=== PATIENT | male | born 1960 | race African-American/Black ===

== ENCOUNTER 2016-10-26 14:47 | Emergency (ER) | payer OTHER ==
[2016-10-26] MEDS ORDERED: KETOROLAC 60 MG/2 ML VIAL IM STA (15:15)
--- NOTE | 2016-10-26 15:22 | ED ---
General Adult HPI - General Chief complaint: Extremity Problem,Nontraumatic Stated complaint: left knee pain Time Seen by Provider: 10/26/16 15:01 Source: patient, RN notes reviewed Mode of arrival: ambulatory Limitations: no limitations - History of Present Illness Initial comments: Chief complaint history of present illness this is a 55-year-old male who was at [facility] for heroin rehabilitation. He's been there approximately 10 days. He states while there he may have twisted his left knee. Left knee is painful and swollen. 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 Denies fever. Requesting a pain shot is not narcotic. He'll receive Toradol 60 IM. He has no ALLERGIES to Toradol, Motrin or asthma or aspirin problems. - Related Data Home Medications Medication Instructions Recorded Confirmed Acetaminophen Tab [Tylenol Tab] 650 mg PO Q4H PRN 10/26/16 10/26/16 Calcium 1000mg Magnesium 500mg 1 tab PO TID PRN 10/26/16 10/26/16 Chlorpheniramine Maleate 4 mg PO Q4H PRN 10/26/16 10/26/16 [Chlor-Trimeton] Hyoscyamine Sulfate [Levsin] 0.125 mg PO QID PRN 10/26/16 10/26/16 Ibuprofen [Motrin] 600 mg PO Q6H PRN 10/26/16 10/26/16 Insulin NPH Hum/Reg Insulin Hm 12 unit SQ DAILY 10/26/16 10/26/16 [humuLIN 70/30 Kwikpen] Insulin Regular, Human [NovoLIN R] See Protocol SQ ACHS PRN 10/26/16 10/26/16 Loperamide [Imodium] 2 mg PO QID PRN 10/26/16 10/26/16 Multivitamins, Thera [Multivitamin 1 tab PO DAILY 10/26/16 10/26/16 (formulary)] Mylanta Liquid 30 ml PO Q4H PRN 10/26/16 10/26/16 Ondansetron HCl [Zofran] 8 mg PO Q6H PRN 10/26/16 10/26/16 Tigan 200mg Im 200 mg IM Q6H PRN 10/26/16 10/26/16 Trimethobenzamide [Tigan] 300 mg PO Q6H PRN 10/26/16 10/26/16 Zofran 2mg/Ml 4 mg IM Q6H PRN 10/26/16 10/26/16 busPIRone HCl [Buspar] 10 mg PO TID PRN 10/26/16 10/26/16 cloNIDine HCL [Catapres] 0.1 mg PO Q4H PRN 10/26/16 10/26/16 traZODone HCL 50 - 150 mg PO HS 10/26/16 10/26/16 Allergies Allergy/AdvReac Type Severity Reaction Status Date / Time No Known Allergies Allergy Verified 10/26/16 15:20 Review of Systems ROS Statement: Those systems with pertinent positive or pertinent negative responses have been documented in the HPI. review of systems. The patient's chief complaint is pain left knee after twisting it. He is using a cane while at [facility]. He states he normally uses a walker. He states the knee is more swollen than normal. Denying any other problems at this time. The patient's denying smoking, denies alcohol use. past medical problems asthma diabetes mellitus, hypertension. Surgeries include reconstruction of the right knee and total left knee was done which subsequent became infected, total joint was removed and then antibiotics are placed in the cavity. And closed. Family history noncontributory. No known ALLERGIES. ROS Other: All systems not noted in ROS Statement are negative. Past Medical History Past Medical History: Diabetes Mellitus, Hypertension History of Any Multi-Drug Resistant Organisms: None Reported Past Surgical History: Orthopedic Surgery Additional Past Surgical History / Comment(s): left replacement and then removal of hardware after infection Past Psychological History: No Psychological Hx Reported Smoking Status: Never smoker Past Alcohol Use History: None Reported Past Drug Use History: None Reported General Exam - General Exam Comments Initial Comments: General: The patient is awake and alert, here because of pain to his left knee which is more swollen after twisting it. Vital signs shows temperature 97.9 pulse 76 respiratory rate 18 pulse ox 100% room air blood pressure 166/95 Eye: Pupils are equal, round and reactive to light, extra-ocular movements are intact ; there is normal conjunctiva bilaterally. No signs of icterus. Ears, nose, mouth and throat: There are moist mucous membranes and no oral lesions. Neck: The neck is supple, there is no tenderness . Cardiovascular: There is a regular rate and rhythm. No murmur, rub or gallop is appreciated. Respiratory: Lungs are clear to auscultation, respirations are non-labored, breath sounds are equal. No wheezes, stridor, rales, or rhonchi. Gastrointestinal: no abdominal pain Back: no back pain Musculoskeletal: tender swollen left knee, decreased range of motion. Neurological: no neuro deficits noted. Skin: no rashes Limitations: no limitations Course Vital Signs 10/26/16 10/26/16 14:50 15:49 Temperature 97.9 F Pulse Rate 76 66 Respiratory 18 20 Rate Blood Pressure 166/95 167/99 O2 Sat by Pulse 100 99 Oximetry Medical Decision Making - Medical Decision Making Medical decision making; patient's had an x-ray of his left knee. Images reviewed by radiologist his findings are; there is intramedullary jordan extending from the distal femur into the proximal one third of the tibial diaphysis. There is an interposed methylmethacrylate material with fusion. There is extensive soft tissue swelling around the patella as well as suspected joint effusion. Multiple loose bodies identified. I do not see evidence for acute fracture at this time. Impression suspect underlying infection. Correlate clinically. Extensive postoperative changes. As read by Dr. Heaton Discussed with the patient the findings on the x-ray. I suggested he be sent by ambulance down the [facility] where he had his surgery done originally. He wants to get there himself first he wants to go back to [facility] and able take him to the other facility. Patient does not have chills does not have fever. Disposition Clinical Impression: Swelling of knee joint, left Disposition: HOME SELF-CARE Condition: Fair Instructions: Swollen Knee Joint (ED), Knee Pain (ED) Additional Instructions: Keep ice on it go directly to [facility] after leaving [facility]. Referrals: None,Stated [REFERRING] - 1-2 days Time of Disposition: 16:22
--- NOTE | 2016-10-26 15:45 | XR ---
EXAMINATION TYPE: XR knee complete LT DATE OF EXAM: 10/26/2016 CLINICAL HISTORY: pain TECHNIQUE: Three views of the left knee are obtained. COMPARISON: None. FINDINGS: There is intramedullary jordan extending from the distal femur into the proximal one third of the tibial diaphysis. There is an interposed methylmethacrylate material with fusion. There is extens ml soft tissue swelling about the patella as well as suspected joint effusion. Multiple loose bodies are identified. I do not see evidence for acute fracture at this time. IMPRESSION: Suspect underlying infection. Correlate clinically. Extensive postoperative changes. ICD 10 NO FRACTURE, INITIAL EVALUATION
[2016-10-26 17:07] VITALS: PULSE 61; RESP 18; TEMP 99.1
[2016-10-26] MEDS ORDERED: cloNIDine HCL 0.2 MG TAB PO STA (17:07)
[2016-10-26 17:42] VITALS: BP 188/97
== END 2016-10-26 17:42 | disposition home or self-care (01) ==
LOC: EC 14:47
DX: M25.462 Effusion, left knee (principal); E11.9 Type 2 diabetes mellitus without complications; Z79.4 Long term (current) use of insulin; Z96.652 Presence of left artificial knee joint
CPT/HCPCS: 73562; 99283; 96372; J1885